=== PATIENT | male | born 1955 | race Caucasian/White ===

== ENCOUNTER → 2016-09-06 | Outpatient (CLI) | payer BC ==
--- NOTE | 2016-09-06 17:12 | DX ---
Chest, PA and lateral. History: Cough. COMPARISON: December 2007. Findings: Heart size is within normal limits. Pulmonary vascularity is normal. The lungs are clear. No evidence of pleural effusion or pneumothorax. Mild degenerative change is seen in the thoracic sp ine. Elevation of the right hemidiaphragm. Evidence of prior cervical spine surgery. Impression: No evidence of acute cardiopulmonary abnormality.
== END ==
LOC: BMCIMAGING 14:37
PROVIDERS: ATTEND Internal Medicine
DX: R05 Cough (principal)